=== PATIENT | male | born 1945 | race Caucasian/White ===

== ENCOUNTER 2022-05-02 10:37 | Emergency (ER) | payer MEDICARE, SELFPAY ==
[2022-05-02 10:45] VITALS: BP 142/81; PULSE 81; RESP 16; TEMP 36.4; O2SAT 94; BMI 30.7
--- NOTE | 2022-05-02 10:49 | ED_ITS ---
HPI - Dental/Oral General: Chief complaint: Dental/Oral Stated complaint: dental pain Time Seen by Provider: 05/02/22 10:44 Source: patient Mode of arrival: ambulatory Limitations: no limitations History of Present Illness: Patient is a nice 77-year-old male who presents to ED today with a complaint of right lower dental pain. Patient states last week he was eating breakfast and bit down on a slice of hartman and states his right lower molar cracked/broke and is now loose. He has contacted his primary dental office in [place] who stated they do not have any available appointments until June. He has contacted to other dental clinics here in [facility] and states one of them is able to see him in 2 weeks. Patient is not having any facial swelling. MD Complaint: tooth pain and tooth injury Teeth map: 1. Onset (ago): day(s) Duration: constant Relieving factors: nothing Exacerbating factors: chewing Context: trauma (mechanism) Associated symptoms: Reports no associated symptoms; Denies fever(s) or odynophagia Treatment prior to arrival: oral analgesic Review of Systems Const: Denies: fever(s), chills, body aches, fatigue or malaise ENMT: Reports: dental pain; Denies: throat pain, odynophagia, hoarseness, mouth pain, swelling of lips/tongue, oral sores or bleeding gums Card: Denies: chest pain Resp: Denies: dyspnea GI: Denies: nausea or vomiting Musc: Denies: neck pain Neuro: Denies: headache(s) Physical Exam Const: COMMON NORMALS: no acute distress, no limitations and alert HENMT: FACE & SINUS: normal facial exam MOUTH: Normal oral and palatal mucosa present, lip normal, tongue normal and other (floor of mouth is soft/non- raised) TEETH & GINGIVA: Yes dentures (upper) and Yes poor dentition (lower dentition with several widespread caries) TEETH & GINGIVA IMAGES: 1. severely decayed molar with fracture; tooth loose; no abscess formation at this time THROAT: posterior oropharynx normal, tonsils normal and uvula midline Neck/C-Spine: COMMON NORMALS: no lymphadenopathy GENERAL: Yes normal visual inspection, No anterior neck swelling and No submandibular swelling Neuro: SENSORIUM/ORIENTATION: Yes alert Course Vital Signs: Vital signs: Vital Signs Temperature 97.6 F 05/02/22 10:45 Pulse Rate 81 06/07/22 10:45 Respiratory Rate 16 05/02/22 10:45 Blood Pressure 142/81 05/02/22 10:45 Pulse Oximetry 94 05/02/22 10:45 MDM - Dental/Oral Medical Decision Making Ultimately patient needs this molar extracted. Recommend he keep his appointment for the dentist to get this done as soon as possible. Will place on antibiotics and give a small amount of pain medication he may use sparingly until this appointment. Recommend soft food diet, chewing on non-affected side, etc. Return to ED precautions given. Discharge Plan Discharge Patient Disposition: Home Clinical Impression: Toothache, Dental caries Condition: Stable Prescriptions: New penicillin V potassium 500 mg tablet 500 mg PO Q8H 7 Days Qty: 21 0RF tramadol 50 mg tablet 50 mg PO Q6H PRN (Reason: pain) Qty: 15 0RF Discharge Orders: Discharge ED (Routine); Ordered 05/02/22 Ordered By: Pamella Clements Referrals: Miguel Antunez MD [Hospitalist] - Patient Instructions: Dental Caries (Cavities), Acute Dental Trauma (ED), Toothache (ED) Coding Level of Care Code ED Sharepoint Architect for Mayelin Grey
== END 2022-05-02 11:10 | disposition home or self-care (01) ==
PROVIDERS: Emergency Provider Physician Assistant
DX: K08.89 Other specified disorders of teeth and supporting structures (principal); K02.9 Dental caries, unspecified
CPT/HCPCS: 99283

== ENCOUNTER → 2022-07-04 13:45 | Outpatient (BNVA) | payer MEDICARE, SELFPAY | PROVIDERS: Visit Provider Surgery | DX: D17.1 Benign lipomatous neoplasm of skin and subcutaneous tissue of trunk (principal); R22.2 Localized swelling, mass and lump, trunk | CPT/HCPCS: 99203 ==

== ENCOUNTER 2022-07-17 07:15 | Day surgery (SDC) | payer MEDICARE, SELFPAY ==
[2022-07-17] VITALS (7 sets, daily range): BP systolic 93–150; BP diastolic 46–84; PULSE 72–79; RESP 17–20; TEMP 36.1–36.7; O2SAT 92–98
--- NOTE | 2022-07-17 06:25 | ANES.PREANE2 ---
Pre-Anesthetic Assessment Height/Weight: Height 1.63 m Weight 75.296 kg Preop Diagnosis: back mass Operation Date: 07/17/22 08:15 Proposed Procedures p excision of upper back mass 93442,D17.1(Not Applicable) - Moreno Felix MD Familial anesthetic complications: None Was Beta Xochitl taken within 24 hours: N/A Was Clonidine taken within 24 hours: N/A Social No alcohol and No tobacco Exam alert, oriented x 3 and regular rate & rhythm diminished breath sounds b/l Airway Submandibular: within normal limits Cervical ROM: within normal limits Mallampati: Class I Comments: Comments: missing teeth History/ROS No significant complaints Pulmonary None reported Former smoker, denies COPD, asthma, ENEDINA CV/HEM None reported METS > 4 None reported Hepatic None reported GI None reported Metabolic None reported Musc/skel None reported Mass on back Neuropsych None reported Anesthetic Plan ASA status: 1 Anesthesia: Anesthesia Evaluation, General and MAC Other: We discussed risk and benefits of general anesthesia including PONV, sore throat (sometimes severe), corneal abrasion, positioning and peripheral nerve injuries, life threatening allergic reaction, post operative ICU admission requiring prolonged intubation, aspiration, stroke, heart attack, , and rare incidences of recall. I discussed with the patient risks, goals, and benefits of MAC and general anesthesia. We discussed spectrum of MAC anesthesia including conversion to general as well as possibility of recall of intraoperative stimuli including discomfort/pain. Patient consents to MAC or General pending further discussion with surgeon. Risk of > 500 ml blood loss (7ml/kg in children): No Medications/Allergies Home Medications Medication Instructions Recorded Confirmed Last Taken Type No Known Home Medications 07/14/22 07/14/22 Unknown History Allergies Allergy/AdvReac Type Severity Reaction Status Date / Time Sulfa (Sulfonamide Allergy ALGY-Hives Verified 07/17/22 07:32 Antibiotics) [facility] Anesthesia Social History Smoking and tobacco status: former smoker Data Anesthesia Cardiac Studies: No Data to Display
[2022-07-17] MEDS: acetaminophen 1,000 MG/100 ML PIGGYBACK 400 MG IV (07:51)
[2022-07-17] MEDS: sodium chloride 0.9% 1,000 ML 30 ML IV (07:51)
--- NOTE | 2022-07-17 08:07 | W.PM.OPSUD ---
Surgery/Procedure H&P Update DATE OF PROCEDURE: July 17, 2022 DATE H&P PERFORMED: 07/04/22 H&P UPDATE INFORMATION: I have reviewed H&P completed within last 30 days, I have examined patient prior to procedure and No changes to prior documentation PREOP DIAGNOSIS: Upper back mass PRIMARY INDICATION FOR PROCEDURE: The same PLANNED PROCEDURE: Operation Date: 07/17/22 08:15 Proposed Procedures p excision of upper back mass 01804,D17.1(Not Applicable) - Moreno Felix MD
[2022-07-17] MEDS: ceFAZolin 2,000 MG in sodium chloride 0.9% (plus) 50 ML 100 MG IV (08:25)
[2022-07-17] MEDS: lidocaine 2% INJ 20 mL INJECTION (08:41)
--- NOTE | 2022-07-17 09:07 | P.OP_ITS ---
Operative Report Date of procedure: July 17, 2022 Pre-op diagnosis: Preop Diagnosis back mass Post-op diagnosis: Upper back sebaceous cyst Procedure done: Excision of upper back sebaceous cyst Specimens removed/disposition: Sebaceous cyst 5 x 5 cm and skin ellipse including the punctum Surgeon: Moreno Felix MD Head Chopper: pilot plant research technician Zena Circulating nurse Rebeca Alfred Anesthesia: MAC (environmental economist Patty) Estimated blood loss (mL): 5 Procedure: After identifying the patient holding area, upper back mass was marked before the procedure by myself, patient was then taken to the operative suite, was placed in left lateral position and all pressure points were padded, IV antibiotics were given per protocol,IV propofol was infused by the anesthesia provider, prep and drape of the upper back region was done under the usual sterile technique. Time-out was done verifying the patient's name/date of /planned procedure and destination after the procedure, all were in agreement. After palpation of upper back mass infiltration of lidocaine 2%. Started with elliptical skin incision including the punctum of the sebaceous cyst. I was able to dissect using sharp dissection and the whole cyst was excised from the surrounding tissues, the specimen was then sent for permanent pathology. Copious and thorough irrigation of the cavity was done and hemostasis, followed by deep dermal closure by 2-0 Vicryl, then 2/0 nylon transverse mattress for skin closure, followed by triple antibiotic ointment and pressure dressing. Patient tolerated the procedure well, count of instruments, needles and sponges were completed at the end of the procedure. And then patient was taken to the recovery area in stable condition. I was present for the whole entire procedure
[2022-07-17] MEDS: neomycin-poly-bacitracin oint 28 gm 1 APPLIC TOPICAL (09:12)
--- NOTE | 2022-07-17 12:06 | ANE.PACU2 ---
Inpatient post-anesthesia follow up: Airway intact: Yes Vital signs: Temperature 98.1 F Pulse Rate 74 Respiratory Rate 17 Blood Pressure 113/72 Pulse Oximetry 95 Oxygen Delivery Me thod Room Air Oxygen Flow Rate 6 Fraction of Inspir ed Oxygen Hydration adequate: Yes Nausea and vomiting: No Pain level: 1 Mental status: Baseline
== END 2022-07-17 10:23 | disposition home or self-care (01) ==
PROVIDERS: Visit Provider Surgery
PROC: (CPT 11406; principal; 2022-07-17 08:05)
DX: L72.0 Epidermal cyst (principal); Z87.891 Personal history of nicotine dependence
CPT/HCPCS: 11406; 12032; 88304; J2704; J3010; J7030

== ENCOUNTER → 2022-07-24 08:16 | Outpatient (BNVA) | payer MEDICARE, SELFPAY | PROVIDERS: Visit Provider Surgery | DX: Z09 Encounter for follow-up examination after completed treatment for conditions other than malignant neoplasm (principal) | CPT/HCPCS: 99024 ==

== ENCOUNTER → 2022-08-02 11:07 | Outpatient (BNVA) | payer MEDICARE, SELFPAY | PROVIDERS: Visit Provider Surgery | DX: Z09 Encounter for follow-up examination after completed treatment for conditions other than malignant neoplasm (principal) | CPT/HCPCS: 99024 ==

== ENCOUNTER 2025-04-22 18:21 | Emergency (ER) | payer MEDICARE, SELFPAY ==
[2025-04-22 18:39] VITALS: BP 140/67; PULSE 89; RESP 16; TEMP 38; O2SAT 91
--- NOTE | 2025-04-22 19:13 | CTR_ITS ---
PROCEDURE INFORMATION: Exam: CT Abdomen And Pelvis Without Contrast Exam date and time: 04/22/2025 8:43 PM Age: 80 years old Clinical indication: Abdominal pain; Flank; Left; Additional info: Flank pain TECHNIQUE: Imaging protocol: Computed tomography of the abdomen and pelvis without contrast. Radiation optimization: All CT scans at this facility use at least one of these dose optimization techniques: automated exposure control; mA and/or kV adjustment per patient size (includes targeted exams where dose is matched to clinical indication); or iterative reconstruction. COMPARISON: CT kidney stone [id number] 08/14/2018 7:17 AM RADIATION DOSE METRICS: Total DLP (mGy-cm): 536.93 FINDINGS: Coronary arteries: Coronary arterial calcifications are demonstrated. Liver: Abnormal heterogeneous irregularity of hepatic capsular margin is noted, typical of cirrhotic liver disease. Liver demonstrates diffuse moderate to severe hypodensity. Stable medial left hepatic cyst. Gallbladder and biliary ducts: Cholelithiasis is demonstrated. The gallbladder appears otherwise unremarkable. No evidence for biliary dilatation. Pancreas: Unremarkable. Spleen: The spleen is enlarged. Spleen measurement: 14 cm greatest length. Adrenal glands: Normal. No mass. Kidneys and ureters: Bilateral nephrolithiasis is demonstrated. Bilateral renal calculi measure up to 5 mm. No visualized renal hydronephrosis. No visualized obstructing ureteral calculus. Indeterminate left renal incidental lesion identified. Measurement and location: Exophytic 11 mm density arises from the posterior lower left kidney measuring 30 Hounsfield units. Possible complex cyst or solid lesion. The visualized kidneys appear otherwise unremarkable. Stomach and bowel: Severely prominent fluid identified within the bowel, colon and rectum, suggesting severe diarrheal state. Findings compatible with severe infectious or inflammatory gastroenteritis, colitis with wall thickening. Wall thickening identified throughout the entire colon and distal rectum with adjacent edema. Appendix: The visualized appendix appears unremarkable. Intraperitoneal space: Moderate volume of intraperitoneal fluid identified in the bilateral abdomen and pelvis. Diffuse generalized moderate to severe abdominal pelvic mesenteric edema. No significant intraperitoneal well-defined fluid collection or air identified. Vasculature: Findings demonstrate evidence for portal venous hypertension. Findings include: Gastroesophageal varices, recanalized umbilical vein, portal venous collaterals within the abdomen or pelvis. Generalized anasarca and ascites. [id number] diffuse atherosclerotic arterial vascular wall calcifications are demonstrated. Lymph nodes: No enlarged lymph nodes. Urinary bladder: Unremarkable as visualized. Reproductive: Unremarkable as visualized. Bones/joints: Diffusely decreased bone density. Mild to moderate generalized bony degenerative changes. Bilateral L5 spondylolysis is demonstrated. Moderate to severe bony degenerative changes involving the lumbar sacral junction. Disc and osteophyte complexes with moderate to severe central canal and foraminal narrowing within the lumbar sacral junction. Minimal grade 1 anterior spondylolisthesis at L5-S1 level. Soft tissues: Laij-qm-sdbkavjt diffuse generalized anasarca. CT/CT kidney stone [id number] IMPRESSION: 1. Findings compatible with severe infectious or inflammatory gastroenteritis and colitis. See above details. Diffuse colonic wall thickening. 2. Liver cirrhosis. Recommend correlation with liver function tests. Moderate to severe hepatic steatosis. 3. Cholelithiasis. 4. Splenomegaly. Findings compatible with portal venous hypertension, as described above. 5. Moderate volume free intraperitoneal fluid within the abdomen pelvis. Generalized anasarca. 6. Bilateral nonobstructing nephrolithiasis. 7. Indeterminate left renal lesion, as described above. Recommend renal ultrasound to differentiate solid versus cystic lesion. 8. L5 spondylolysis with lumbosacral spondylolisthesis and advanced chronic bony degenerative changes, as described above. Consider MRI imaging. COMMENTS: Consistent with the [employer]'s Incidental Findings Committee white paper (J Am Bea Radiol 2018): Any incidental renal lesion less than 1 cm or classified as too small to characterize, or any incidental cystic renal lesion characterized as simple-appearing, is likely benign. No follow-up imaging is recommended for these lesions per consensus recommendations based on imaging criteria.
[2025-04-22 20:09] LABS: Basophils # 0.1 10^3/uL (0.0-0.1); Basophils % 0.6 %; Eosinophils % 0.4 %; Hematocrit 42.5 % (37-53); Lymphocytes # 1.2 10^3/uL (0.8-4.8); Lymphocytes % 11.9 %; Mean Corpuscular HGB Conc 31.5 g/dL (30-55); Mean Corpuscular Hemoglobin 26.6 pg (27-33); Mean Corpuscular Volume 84.3 fl (82-101); Mean Platelet Volume 9.9 fL (7.4-10.4); Monocytes # 0.8 10^3/uL (0.2-0.9); Monocytes % 7.7 %; Neutrophils # 7.83 10^3/uL (1.8-7.7); Neutrophils % 79.1 %; Nucleated Red Blood Cells % 0 %; Platelet Count 125 10^3/cmm (157-399); Red Blood Count 5.04 10^6/uL (3.85-5.65); Red Cell Distribution Width 15.9 % (12.1-15.1)
[2025-04-22 20:24] LABS: Alanine Aminotransferase 16 U/L (0-41); Albumin Level 3.4 g/dL (3.5-5.2); Alkaline Phosphatase 93 U/L (40-130); Anion Gap 18.1 (5-19); Aspartate Amino Transferase 32 U/L (0-40); Blood Urea Nitrogen 19 mg/dL (8-23); C Reactive Protein 27.5 mg/L (0.0-4.9); Calcium 8.4 mg/dL (8.5-10.5); Carbon Dioxide 25 mmol/L (22-29); Chloride 97 mmol/L (98-107); Creatinine Clr Calc Pharmacy 71.8186; Globulin 3.2 g/dL (1.3-4.6); Glucose 117 mg/dL (65-115); Osmolality Calculated 285 mOsm/kg (285-295); Potassium 4.1 mmol/L (3.5-5.1); Sodium 136 mmol/L (136-145); Total Bilirubin 1.2 mg/dL (0.15-1.2); Total Protein 6.6 g/dL (6.6-8.7)
[2025-04-22 20:26] LABS: Lactic Sepsis W/Reflex 2.1 mmol/L (0.5-2.2)
[2025-04-22 20:30] VITALS: BP 147/71; PULSE 82; RESP 16; O2SAT 92
[2025-04-22 20:33] VITALS: BP 105/91; PULSE 82; O2SAT 92
[2025-04-22 21:19] LABS: Bilirubin Urine 1+ (Negative); Blood Urine 1+ (Negative); Glucose Urine UA Negative (Normal); Ketones Urine 1+ (Negative); Leukocyte Esterase Urine Negative (Negative); Nitrate Urine Negative (Negative); Protein Urine Trace (Negative); Urine Appearance Clear (CLEAR); pH Urine 5.5 (5-7)
[2025-04-22 21:22] LABS: Bacteria Urine None Seen /hpf; Hyaline Casts Urine 2.87 /lpf; Squamous Epithelial Cell Urine 0-5 /hpf (0-5); WBC Urine 0-5 /hpf (0-5)
[2025-04-22 21:33] LABS: Specific Gravity, Urine 1.032 (1.005-1.030); Urine Color Orange (Yellow)
[2025-04-22 21:51] LABS: Reflex Lactate Order REFLEX LACTIC ORDERD
--- NOTE | 2025-04-22 22:01 | ED_ITS ---
HPI - Abdominal Pain 2 General: Chief Complaint: Abdominal Pain Stated Complaint: Pain in lower back N/D Time Seen by Provider: 04/22/25 19:30 Source: patient Mode of arrival: ambulatory Limitations: no limitations History of Present Illness: 80yo male presents with diarrhea that calderón s been ongoing for the past week. Patient reports that it did almost resolved a few days ago, but came back even worse. Patient denies any fever, chills, body aches, recent illness, recent use of antibiotics, cough, congestion, any other concerns at this time. Associated Symptoms: Reports diarrhea; Denies chills, fever(s), nausea and vomiting Related Data Previous Rx's ?Medication ?Instructions ?Recorded amoxicillin 875 mg-potassium 1 tab PO Q8H #15 tabs clavulanate 125 mg tablet Allergies Allergy/AdvReac Type Severity Reaction Status Date / Time Sulfa (Sulfonamide Allergy ALGY-Hives Verified 08/03/22 16:21 Antibiotics) Review of Systems 2 Const: Denies: fever(s), chills or body aches Card: Denies: chest pain Resp: Denies: dyspnea GI: Reports: diarrhea; Denies: nausea or vomiting : Denies: difficulty urinating PFSH ED 2 PFSH: Medical History Mass on back Social History Smoking and tobacco/nicotine status: former use of tobacco/nicotine Physical Exam 2 Const: COMMON NORMALS: no acute distress, patient oriented x3, healthy appearing and alert GENERAL APPEARANCE: cooperative O RIENTATION/CONSCIOUSNESS: Yes awake OTHER: Patient is standing at bedside in no acute distress. He is able to give history with no difficulty. He is interactive with exam appropriately. No family is at bedside HENMT: COMMON NORMALS: normocephalic and atraumatic HEAD & SCALP: n ormocephalic and atraumatic Neck/C-Spine: COMMON NORMALS: full ROM Chest: CHEST: Yes Symmetrical chest wall rise Resp: COMMON NORMALS: normal respiratory effort and clear to auscultation bilaterally EFFORT & INSPECTION: Yes able to speak in complete sentences A USCULTATION: clear to auscultation bilaterally Cardio: COMMON NORMALS: regular rate and regular rhythm RATE: regular rate RHYTHM: regular rhythm GI: COMMON NORMALS: Soft to palpation and non-tender PALPATION: Yes Soft to palpation Extremity: COMMON NORMALS: full ROM Neuro: COMMON NORMALS: patient oriented x3 SENSORIUM/ORIENTATION: Yes alert Psych: COMMON NORMALS: cooperative Course 2 Vital Signs: Vital signs: Vital Signs Temperature 100.4 F H 04/22/25 18:39 Pulse Rate 82 04/22/25 20:33 Respiratory Rate 16 04/22/25 20:30 Blood Pressure 105/91 04/22/25 20:33 Pulse Oximetry 92 04/22/25 20:33 Oxygen Delivery Me thod Room Air 04/22/25 20:33 MDM - Abdominal Pain Medical Decision Making 80yo male here with diarrhea that has been ongoing for the past week, it did improve a few days ago, but worsened again. Patient denies fever, chills, body aches, recent antibiotic usage, abdominal pain, any other concerns at this time. Patient is nontoxic in appearance. Vital signs are stable. No leukocytosis, white blood cell count noted to be 9.9. Hemoglobin is 13.4, no indication of anemia. No significant electrolyte, renal, or hepatic abnormalities noted. CRP is elevated at 27.5. UA with 1+ ketones, 1+ bilirubin, 1+ blood. Contrasted CTAP reveals findings compatible with severe infectious or inflammatory gastroenteritis and colitis with diffuse colonic wall thickening. Liver cirrhosis also noted with moderate to severe hepatic steatosis. Cholelithiasis. Splenomegaly. Generalized anasarca. Bilateral nonobstructing nephrolithiasis. Left renal lesion, recommend ultrasound for further evaluation. L5 spondylolysis with lumbosacral spondylolisthesis, consider MRI imaging. Discussed findings of severe infectious or inflammatory gastroenteritis and colitis with patient. Advised we would begin antibiotics. Information was provided for patient with other findings on CT for follow-up with primary care. Patient did receive Augmentin while in the emergency department and a prescription was sent to patient's pharmacy. Recommend taking the antibiotic to completion. Recommend follow-up with primary care, call in 2 to 3 days with an update of symptoms and to discuss recheck. Return precautions provided. Patient states understanding and has no further questions or concerns at this time. Differential Diagnosis Likely abdominal pain, calculus of kidney, diverticulitis and gastroenteritis Medical Records I reviewed the patient's medical records. Lab Data I reviewed the patient's lab results. 04/22/25 19:52 04/22/25 19:52 Labs/Radiology: Radiology Impressions Abdomen/Pelvis CT 04/22/25 19:13 IMPRESSION: 1. Findings compatible with severe infectious or inflammatory gastroenteritis and colitis. See above details. Diffuse colonic wall thickening. 2. Liver cirrhosis. Recommend correlation with liver function tests. Moderate to severe hepatic steatosis. 3. Cholelithiasis. 4. Splenomegaly. Findings compatible with portal venous hypertension, as described above. 5. Moderate volume free intraperitoneal fluid within the abdomen pelvis. Generalized anasarca. 6. Bilateral nonobstructing nephrolithiasis. 7. Indeterminate left renal lesion, as described above. Recommend renal ultrasound to differentiate solid versus cystic lesion. 8. L5 spondylolysis with lumbosacral spondylolisthesis and advanced chronic bony degenerative changes, as described above. Consider MRI imaging. COMMENTS: Consistent with the [employer]'s Incidental Findings Committee white paper (J Am Bea Radiol 2018): Any incidental renal lesion less than 1 cm or classified as too small to characterize, or any incidental cystic renal lesion characterized as simple-appearing, is likely benign. No follow-up imaging is recommended for these lesions per consensus recommendations based on imaging criteria. Laboratory Results WBC 9.90 10^3/uL (3.29-11.43) 04/22/25 19:52 RBC 5.04 10^6/uL (3.85-5.65) 04/22/25 19:52 Hgb 13.40 g/dL (11.27-16.99) 04/22/25 19:52 Hct 42.5 % (37-53) 04/22/25 19:52 MCV 84.3 fl (82-101) 04/22/25 19:52 MCH 26.6 pg (27-33) L 04/22/25 19:52 MCHC 31.5 g/dL (30-55) 04/22/25 19:52 RDW 15.9 % (12.1-15.1) H 04/22/25 19:52 Plt Count 125 10^3/cmm (157-399) L 04/22/25 19:52 MPV 9.9 fL (7.4-10.4) 04/22/25 19:52 Neut % (Auto) 79.1 % 04/22/25 19:52 Lymph % (Auto) 11.9 % 04/22/25 19:52 [place] % (Auto) 7.7 % 04/22/25 19:52 Eos % (Auto) 0.4 % 04/22/25 19:52 Baso % (Auto) 0.6 % 04/22/25 19:52 Neut # (Auto) 7.83 10^3/uL (1.8-7.7) H 04/22/25 19:52 Lymph # (Auto) 1.2 10^3/uL (0.8-4.8) 04/22/25 19:52 [place] # (Auto) 0.8 10^3/uL (0.2-0.9) 04/22/25 19:52 Eos # (Auto) 0.0 10^3/uL (0.0-0.8) 04/22/25 19:52 Baso # (Auto) 0.1 10^3/uL (0.0-0.1) 04/22/25 19:52 Nucleated RBC % (auto) 0 % 04/22/25 19:52 Nucleated RBCs # 0.0 /100WBC 04/22/25 19:52 Sodium 136 mmol/L (136-145) 04/22/25 19:52 Potassium 4.1 mmol/L (3.5-5.1) 04/22/25 19:52 Chloride 97 mmol/L (98-107) L 04/22/25 19:52 Carbon Dioxide 25 mmol/L (22-29) 04/22/25 19:52 Anion Gap 18.1 (5-19) 04/22/25 19:52 BUN 19 mg/dL (8-23) 04/22/25 19:52 Creatinine 0.7 mg/dL (0.7-1.2) 04/22/25 19:52 GFR Calculation Not Reportable 04/22/25 19:52 Glucose 117 mg/dL (65-115) H 04/22/25 19:52 Calculated Osmolality 285 mOsm/kg (285-295) 04/22/25 19:52 Lactic Acid 2.1 mmol/L (0.5-2.2) 04/22/25 19:52 Calcium 8.4 mg/dL (8.5-10.5) L 04/22/25 19:52 Total Bilirubin 1.2 mg/dL (0.15-1.2) 04/22/25 19:52 AST 32 U/L (0-40) 04/22/25 19:52 ALT 16 U/L (0-41) 04/22/25 19:52 Alkaline Phosphatase 93 U/L (40-130) 04/22/25 19:52 C-Reactive Protein 27.5 mg/L (0.0-4.9) H 04/22/25 19:52 Total Protein 6.6 g/dL (6.6-8.7) 04/22/25 19:52 Albumin 3.4 g/dL (3.5-5.2) L 04/22/25 19:52 Globulin 3.2 g/dL (1.3-4.6) 04/22/25 19:52 Urine Color [place] (Yellow) A 04/22/25 21:07 Urine Appearance Clear (CLEAR) 04/22/25 21:07 Urine pH 5.5 (5-7) 04/22/25 21:07 Ur Specific [place] 1.032 (1.005-1.030) H 04/22/25 21:07 Urine Protein Trace (Negative) A 04/22/25 21:07 Urine Glucose (UA) Negative (Normal) 04/22/25 21:07 Urine Ketones 1+ (Negative) H 04/22/25 21:07 Urine Blood 1+ (Negative) A 04/22/25 21:07 Urine Nitrate Negative (Negative) 04/22/25 21:07 Urine Bilirubin 1+ (Negative) H 04/22/25 21:07 Urine Urobilinogen 1.0 mg/dL (Negative) 04/22/25 21:07 Ur Leukocyte Esterase Negative (Negative) 04/22/25 21:07 Urine RBC 11-20 /hpf (0-2) H 04/22/25 21:07 Urine WBC 0-5 /hpf (0-5) 04/22/25 21:07 Ur Squamous Epith Cells 0-5 /hpf (0-5) 04/22/25 21:07 Amorphous Sediment Not Reportable 04/22/25 21:07 Urine Bacteria None seen /hpf (NONE) 04/22/25 21:07 Hyaline Casts 2.87 /lpf 04/22/25 21:07 All radiology interpretation(s) finalized by discharge Discharge Plan Discharge Patient Disposition: Home Clinical Impression: Colitis, Splenomegaly, Bilateral nephrolithiasis Cholelithiasis Qualifiers: Cholelithiasis location: gallbladder Cholecystitis presence: without cholecystitis Biliary obstruction: without biliary obstruction Qualified Code(s): K80.20 - Calculus of gallbladder without cholecystitis without obstruction Cirrhosis of liver Qualifiers: Hepatic cirrhosis type: unspecified hepatic cirrhosis Ascites presence: without ascites Qualified Code(s): K74.60 - Unspecified cirrhosis of liver Condition: Stable Prescriptions: New amoxicillin-pot clavulanate 875-125 mg tablet 1 tab PO Q8H Qty: 15 0RF Discharge Orders: Discharge ED (Routine); Ordered 04/22/25 Ordered By: Taz Auguste Discharge Diet: Advance as tolerated Discharge Activity: Increase activity as tolerated Patient Instructions: Colitis (ED) Activity Restrictions/Additional Instructions: The CT scan does show colitis. We have sent antibiotics to your pharmacy to begin treatment of the colitis. Please take these antibiotics to completion Incidental findings of the CT scan do include liver cirrhosis, anasarca, gallstones, enlarged spleen, kidney stones in both kidneys, and a left kidney lesion. Please follow-up with primary care for further evaluation of these abnormalities Follow-up with primary care, call in 2 to 3 days with an update of symptoms and to discuss a recheck Return to the emergency department if any rapid worsening symptoms, onset of fever associated with worsening, and as needed Print Language: Slovak Coding Level of Care Code ED Christian Science Practitioner for Mayelin Grey
[2025-04-22] MEDS: acetaminophen 325 mg Tablet 650 MG PO (22:27)
[2025-04-22] MEDS: amoxicillin-clav 875-125 mg Tablet 1 TAB PO (22:27)
[2025-04-22 22:34] VITALS: BP 131/58; PULSE 87; RESP 16; O2SAT 93
== END 2025-04-22 22:35 | disposition home or self-care (01) ==
PROVIDERS: Emergency Medicine; Emergency Provider Nurse Practitioner
DX: K52.9 Noninfective gastroenteritis and colitis, unspecified (principal); N20.0 Calculus of kidney; R16.1 Splenomegaly, not elsewhere classified; K80.20 Calculus of gallbladder without cholecystitis without obstruction; K74.60 Unspecified cirrhosis of liver
CPT/HCPCS: 74176; 80053; 81001; 83605; 85025; 86140; 87040; 99284; J9999

== ENCOUNTER 2025-06-25 15:20 | Emergency (ER) | payer MEDICARE, SELFPAY ==
[2025-06-25 15:23] VITALS: BP 166/74; PULSE 82; RESP 19; TEMP 36.7; O2SAT 94; BMI 26.7
--- NOTE | 2025-06-25 18:07 | CTR_ITS ---
PROCEDURE INFORMATION: Exam: CT Abdomen And Pelvis Without Contrast Exam date and time: 06/25/2025 6:25 PM Age: 80 years old Clinical indication: Abdominal pain; Localized; Right; Additional info: Flank pain TECHNIQUE: Imaging protocol: Computed tomography of the abdomen and pelvis without contrast. Radiation optimization: All CT scans at this facility use at least one of these dose optimization techniques: automated exposure control; mA and/or kV adjustment per patient size (includes targeted exams where dose is matched to clinical indication); or iterative reconstruction. COMPARISON: CT kidney stone [id number] 04/22/2025 8:43 PM RADIATION DOSE METRICS: Total DLP (mGy-cm): 532.57 FINDINGS: Liver: Cirrhotic liver morphology. Similar cysts in the medial segment left hepatic lobe. Diffuse hepatic steatosis. Gallbladder and biliary ducts: Cholelithiasis without CT evidence of acute cholecystitis. Pancreas: Fatty atrophy of the pancreas. No ductal dilatation. Spleen: The spleen measures 15.3 cm craniocaudal. Adrenal glands: Normal. No mass. Kidneys and ureters: Redemonstrated bilateral nephrolithiasis with calculi measuring up to 5 mm. No hydronephrosis. Stable appearance of the kidneys, including an exophytic lesion arising from the posterior left kidney. 2 mm calculus of the level of the left ureterovesicular junction with mild upstream hydroureter. Stomach and bowel: Mild sigmoid diverticulosis without diverticulitis. No evidence of bowel obstruction. Appendix: No evidence of appendicitis. Intraperitoneal space: Moderate volume ascites. Mild mesenteric edema. Vasculature: Moderate atherosclerotic aortoiliac calcifications. No abdominal aortic aneurysm. Redemonstrated paraesophageal and upper abdominal varices and a recanalized paraumbilical vein. Lymph nodes: Unremarkable. No enlarged lymph nodes. Urinary bladder: Circumferential bladder wall thickening. Reproductive: Prostatomegaly. 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 Degenerative changes of the spine. Diffuse osseous demineralization. Soft tissues: Unremarkable. CT/CT kidney stone [id number] IMPRESSION: 1. 2 mm calculus at the level of the left ureterovesicular junction with mild upstream hydroureter. 2. Cirrhotic liver morphology with imaging features of portal hypertension including moderate volume ascites, splenomegaly, paraesophageal and upper abdominal varices, and a recanalized paraumbilical vein. 3. Similar nonobstructing bilateral nephrolithiasis. 4. Prostatomegaly. Correlate with PSA levels. 5. Indeterminate left renal lesion again seen. Recommend nonemergent renal ultrasound. 6. Remainder stable.
--- NOTE | 2025-06-25 18:22 | ED_ITS ---
HPI - Back Pain/Injury 2 General: Chief Complaint: Back Pain/Injury Stated Complaint: Lower ABD Pain Time Seen by Provider: 06/25/25 18:07 History of Present Illness: 80-year-old man who presents emergency r oom with flank pain. He had some nausea but no vomiting. No fevers. Says the pain was very severe and then suddenly passed. He says he is being treated for a urinary tract infection. He is currently pain-free Related Data Previous Rx's ?Medication ?Instructions ?Recorded amoxicillin 875 mg-potassium 1 tab PO Q8H #15 tabs clavulanate 125 mg tablet cephalexin 500 mg tablet 500 mg PO TID 7 days #21 tab s 06/25/25 hydrocodone 5 mg-acetaminophen 325 1 tab PO Q6H PRN pa in #20 tabs 06/25/25 mg tablet ondansetron 8 mg disintegrating 8 mg PO Q6H #14 tabs 0 06/25/25 tablet polyethylene glycol 3350 17 17 g PO DAILY #510 grams 0 06/25/25 gram/dose oral powder (Miralax) tamsulosin 0.4 mg capsule (Flomax) 0.4 mg PO DAILY #30 caps 06/25/25 Allergies Allergy/AdvReac Type Severity Reaction Status Date / Time Sulfa (Sulfonamide Allergy ALGY-Hives Verified 08/03/22 16:21 Antibiotics) Review of Systems 2 Narrative: Constitutional symptoms: Negative except as documented in HPI. Skin symptoms: Negative except as documented in HPI. Eye symptoms: Negative except as documented in HPI. ENMT symptoms: Negative except as documented in HPI. Respiratory symptoms: Negative except as documented in HPI. Cardiovascular symptoms: Negative except as documented in HPI. Gastrointestinal symptoms: Negative except as documented in HPI. Genitourinary symptoms: Negative except as documented in HPI. Musculoskeletal symptoms: Negative except as documented in HPI. Neurologic symptoms: Negative except as documented in HPI. Psychiatric symptoms: Negative except as documented in HPI. Endocrine symptoms: Negative except as documented in HPI. PFSH ED 2 PFSH: Medical History (Updated 06/25/25 @ 19:22 by Breana Conner MD) Mass on back Social History Smoking and tobacco/nicotine status: former use of tobacco/nicotine Physical Exam 2 Narrative: EXAM NARRATIVE: General: Alert, no acute distress. Skin: Warm, dry. Head: Normocephalic, atraumatic. Neck: Supple, trachea midline. Eye: Extraocular movements are intact. Ears, nose, mouth and throat: mucosa moist. Cardiovascular: Regular, Normal peripheral perfusion. Respiratory: Lungs are clear to auscultation, respirations are non-labored, breath sounds are equal, Symmetrical chest wall expansion. Gastrointestinal: Soft, Nontender, Non distended Musculoskeletal: Normal ROM, no deformity. Neurological: Alert and oriented, No focal neurological deficit observed. Psychiatric: Cooperative, appropriate mood & affect. Course 2 Vital Signs: Vital signs: Vital Signs Temperature 98.0 F 06/25/25 15:23 Pulse Rate 92 06/25/25 19:17 Respiratory Rate 18 06/25/25 19:17 Blood Pressure 167/75 06/25/25 19:17 Pulse Oximetry 93 06/25/25 19:17 Oxygen Delivery Me thod Room Air 06/25/25 19:17 MDM - Back Pain/Injury Medical Decision Making Medical decision making: Differential diagnosis including but not limited to and based on the above HPI, review of systems and physical exam: In this patient with flank pain would have concern for: Ureterolithiasis. Urinary tract infection. Appendicitis. Cholecystitis. Musculoskeletal / back pain. Pyelonephritis. Orders placed to evaluate differential diagnosis based on the above differential, HPI and physical exam Lab Review: Laboratory results were reviewed and interpreted by myself the emergency room physician. No leukocytosis. No anemia. No renal failure. Urine does show some hematuria but no signs of infection. CT of the abdomen pelvis without contrast shows a 2 mm calculus at the UVJ. Some mild upstream hydroureter. Also stigmata of cirrhosis. Patient has known cirrhosis. He follows with a doctor in [place] for this. This was reviewed and interpreted by myself the emergency room physician. I also reviewed the radiology report. I reviewed the patient's medical record. Reexamination: Patient remained stable. No increased work of breathing. No altered mental status. No focal motor deficits. Assessment and plan: Ureterolithiasis ?Patient has been asymptomatic since he arrived here. - Discharged home - Discussed plan with patient. Answered any questions. - Evaluation and treatment of this problem were appropriate in the emergency setting. Labs 06/25/25 18:55 06/25/25 18:55 Radiology Impressions Abdomen/Pelvis CT 06/25/25 18:07 IMPRESSION: 1. 2 mm calculus at the level of the left ureterovesicular junction with mild upstream hydroureter. 2. Cirrhotic liver morphology with imaging features of portal hypertension including moderate volume ascites, splenomegaly, paraesophageal and upper abdominal varices, and a recanalized paraumbilical vein. 3. Similar nonobstructing bilateral nephrolithiasis. 4. Prostatomegaly. Correlate with PSA levels. 5. Indeterminate left renal lesion again seen. Recommend nonemergent renal ultrasound. 6. Remainder stable. Laboratory Results WBC 5.05 10^3/uL (3.29-11.43) 06/25/25 18:55 RBC 4.48 10^6/uL (3.85-5.65) 06/25/25 18:55 Hgb 12.10 g/dL (11.27-16.99) 06/25/25 18:55 Hct 38.4 % (37-53) 06/25/25 18:55 MCV 85.7 fl (82-101) 06/25/25 18:55 MCH 27.0 pg (27-33) 06/25/25 18:55 MCHC 31.5 g/dL (30-55) 06/25/25 18:55 RDW 16.1 % (12.1-15.1) H 06/25/25 18:55 Plt Count 102 10^3/cmm (157-399) L 06/25/25 18:55 MPV 10.9 fL (7.4-10.4) H 06/25/25 18:55 Neut % (Auto) 81.4 % 06/25/25 18:55 Lymph % (Auto) 11.5 % 06/25/25 18:55 [place] % (Auto) 5.1 % 06/25/25 18:55 Eos % (Auto) 1.2 % 06/25/25 18:55 Baso % (Auto) 0.4 % 06/25/25 18:55 Neut # (Auto) 4.11 10^3/uL (1.8-7.7) 06/25/25 18:55 Lymph # (Auto) 0.6 10^3/uL (0.8-4.8) L 06/25/25 18:55 Stoddard # (Auto) 0.3 10^3/uL (0.2-0.9) 06/25/25 18:55 Eos # (Auto) 0.1 10^3/uL (0.0-0.8) 06/25/25 18:55 Baso # (Auto) 0.0 10^3/uL (0.0-0.1) 06/25/25 18:55 Nucleated RBC % (auto) 0 % 06/25/25 18:55 Nucleated RBCs # 0.0 /100WBC 06/25/25 18:55 Sodium 136 mmol/L (136-145) 06/25/25 18:55 Potassium 3.9 mmol/L (3.5-5.1) 06/25/25 18:55 Chloride 97 mmol/L (98-107) L 06/25/25 18:55 Carbon Dioxide 28 mmol/L (22-29) 06/25/25 18:55 Anion Gap 14.9 (5-19) 06/25/25 18:55 BUN 16 mg/dL (8-23) 06/25/25 18:55 Creatinine 0.8 mg/dL (0.7-1.2) 06/25/25 18:55 GFR Calculation Not Reportable 06/25/25 18:55 Glucose 132 mg/dL (65-115) H 06/25/25 18:55 Calculated Osmolality 285 mOsm/kg (285-295) 06/25/25 18:55 Lactic Acid 2.5 mmol/L (0.5-2.2) H 06/25/25 18:55 Calcium 8.8 mg/dL (8.5-10.5) 06/25/25 18:55 Total Bilirubin 1.3 mg/dL (0.15-1.2) H 06/25/25 18:55 AST 47 U/L (0-40) H 06/25/25 18:55 ALT 27 U/L (0-41) 06/25/25 18:55 Alkaline Phosphatase 112 U/L (40-130) 06/25/25 18:55 Total Protein 6.7 g/dL (6.6-8.7) 06/25/25 18:55 Albumin 3.4 g/dL (3.5-5.2) L 06/25/25 18:55 Globulin 3.3 g/dL (1.3-4.6) 06/25/25 18:55 Urine Color Yellow (Yellow) 06/25/25 19:15 Urine Appearance Clear (CLEAR) 06/25/25 19:15 Urine pH 5.5 (5-7) 06/25/25 19:15 Ur Specific [place] 1.011 (1.005-1.030) 06/25/25 19:15 Urine Protein Negative (Negative) 06/25/25 19:15 Urine Glucose (UA) Negative (Normal) 06/25/25 19:15 Urine Ketones Negative (Negative) 06/25/25 19:15 Urine Blood 3+ (Negative) A 06/25/25 19:15 Urine Nitrate Negative (Negative) 06/25/25 19:15 Urine Bilirubin Negative (Negative) 06/25/25 19:15 Urine Urobilinogen 1.0 mg/dL (Negative) 06/25/25 19:15 Ur Leukocyte Esterase Negative (Negative) 06/25/25 19:15 Urine RBC 3-5 /hpf (0-2) 06/25/25 19:15 Urine WBC 0-5 /hpf (0-5) 06/25/25 19:15 Ur Squamous Epith Cells 0-5 /hpf (0-5) 06/25/25 19:15 Amorphous Sediment Not Reportable 06/25/25 19:15 Urine Bacteria None seen /hpf (NONE) 06/25/25 19:15 Hyaline Casts 2.46 /lpf 06/25/25 19:15 All radiology interpretation(s) finalized by discharge Discharge Plan Discharge Patient Disposition: Home Clinical Impression: Ureterolithiasis Condition: Stable Prescriptions: New hydrocodone-acetaminophen 5-325 mg tablet 1 tab PO Q6H PRN (Reason: pain) Qty: 20 0RF ondansetron 8 mg tablet,disintegrating 8 mg PO Q6H Qty: 14 0RF Rx Instructions: Take 1/2-1 tab every 6 hours as needed for nausea and vomiting tamsulosin [Flomax] 0.4 mg capsule 0.4 mg PO DAILY Qty: 30 0RF cephalexin 500 mg tablet 500 mg PO TID 7 Days Qty: 21 0RF polyethylene glycol 3350 [Miralax] 17 gram/dose powder 17 g PO DAILY Qty: 510 0RF Rx Instructions: Take 1 scoop daily while taking pain medications. No Action amoxicillin-pot clavulanate 875-125 mg tablet 1 tab PO Q8H Qty: 15 0RF Discharge Orders: Discharge ED (Routine); Ordered 06/25/25 Ordered By: Breana Conner Referrals: [email or web address] [Referring, Urology] Referral Note: Please call for a follow-up appointment with urology concerning your kidney stones. Discharge Diet: Usual diet Discharge Activity: Increase activity as tolerated Patient Instructions: Kidney Stones (ED), Opioid Safety, Pain Management, Patient Portal & Angel[place] Instructions Activity Restrictions/Additional Instructions: Call for appointment with urology. If fever (temp >100.4) develops return to the emergency room immediately, as this is an emergency. Take nausea medication prior to taking pain medications. Thank you for choosing [facility] for your healthcare needs today. You have been screened and evaluated and felt safe for discharge. Health conditions do change or evolve sometimes and as such it is important that you follow up with your Primary Doctor to be re checked, 3-5 days is a general good time frame for follow up. You are always welcome to return to the ED for re assessment if your symptoms are worsening or you have new concerns Print Language: Paraguayan Coding Level of Care Code ED Electronic Publishing Specialist for Mayelin Grey
[2025-06-25 19:11] LABS: Hematocrit 38.4 % (37-53); Hemoglobin 12.10 g/dL (11.27-16.99); Mean Corpuscular HGB Conc 31.5 g/dL (30-55); Mean Corpuscular Hemoglobin 27.0 pg (27-33); Mean Corpuscular Volume 85.7 fl (82-101); Nucleated Red Blood Cells % 0 %; Platelet Count 102 10^3/cmm (157-399); Red Blood Count 4.48 10^6/uL (3.85-5.65); White Blood Count 5.05 10^3/uL (3.29-11.43)
[2025-06-25 19:17] VITALS: BP 167/75; PULSE 92; RESP 18; O2SAT 93
[2025-06-25 19:26] LABS: Glucose Urine UA Negative (Normal); Nitrate Urine Negative (Negative); Specific Gravity, Urine 1.011 (1.005-1.030)
[2025-06-25 19:26] LABS: Alanine Aminotransferase 27 U/L (0-41); Albumin Level 3.4 g/dL (3.5-5.2); Alkaline Phosphatase 112 U/L (40-130); Anion Gap 14.9 (5-19); Aspartate Amino Transferase 47 U/L (0-40); Blood Urea Nitrogen 16 mg/dL (8-23); Calcium 8.8 mg/dL (8.5-10.5); Carbon Dioxide 28 mmol/L (22-29); Chloride 97 mmol/L (98-107); Creatinine Clr Calc Pharmacy 67.5914; Globulin 3.3 g/dL (1.3-4.6); Glucose 132 mg/dL (65-115); Osmolality Calculated 285 mOsm/kg (285-295); Potassium 3.9 mmol/L (3.5-5.1); Sodium 136 mmol/L (136-145); Total Protein 6.7 g/dL (6.6-8.7)
[2025-06-25 19:27] LABS: Lactic Sepsis W/Reflex 2.5 mmol/L (0.5-2.2)
[2025-06-25 20:22] VITALS: BP 146/70; PULSE 78; RESP 18; O2SAT 95
[2025-06-25 20:55] LABS: Reflex Lactate Order REFLEX LACTIC ORDERD
--- OUTSIDE RECORDS SUMMARY | 2025-06-26 06:55 | XMS_ITS | Clinical Summary ---
Author Organization [facility] Administrative Offices Address [address] [place] [id number] Care Team Providers Care City Library Director Name Role Phone Jamila Antunez MD Primary Care Provider [phone]- [phone] Allergies Active Allergy Reactions Criticality Noted Date Comments Sulfa (Sulfonamide Antibiotics) Other (See Comments) 06/22/2022 Sweating Medications No known medications Active Problems No known active problems Family History Medical History Relation Name Comments Cancer Father Stroke Mother Relation Name Status Comments Father Mother Social History Tobacco Use Types Packs/Day Years Used Date Smoking Tobacco: Former Cigarettes Smokeless Tobacco: Never Tobacco Cessation:Counseling Given: No Alcohol Use Standard Drinks/Week Comments Not Currently 0 (1 standard drink = 0.6 oz pur e alcohol) Sex and Gender Information Value Date Recorded Sex Assigned at Not on file 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 Gender Identity Not on file Sexual Orientation Not on file Last Filed Vital Signs Vital Sign Reading Time Taken Comments Blood Pressure 132/70 07/13/2022 1:42 PM CDT Pulse 87 07/13/2022 1:42 PM CDT Temperature 36.3 C (97.4 F) 07/13/2022 1:42 PM CDT Respiratory Rate 16 07/13/2022 1:42 PM CDT Oxygen Saturation 95% 07/13/2022 1:42 PM CDT Inhaled Oxygen Concentration - - Weight 75.4 kg (166 lb 4 oz) 07/13/2022 1:42 PM CDT Height 161.3 cm (5' 3.5 ) 07/13/2022 1:42 PM CDT Body Mass Index 28.99 07/13/2022 1:42 PM CDT Plan of Treatment Health Maintenance Due Date Last Done Comments DTAP/TDAP/TD VACCINES (1 - Tdap) 1964 PNEUMOCOCCAL VACCINE 50+ YEARS (1 of 1 - PCV) 02/11/19 96 ZOSTER VACCINE (1 of 2) 02/12/1996 RSV VACCINE (60+ or ) (1 - 1-dose 75+ series) 2021 INFLUENZA VACCINE (#1) 2025 Insurance [employer] [facility] Care Teams City Library Director Relationship Specialty Start Date End Date Jamila Antunez MD [address] [place] [id number] PCP - General Family Practice 06/22/22
== END 2025-06-25 20:24 | disposition home or self-care (01) ==
PROVIDERS: Emergency Provider Emergency Medicine
DX: N20.1 Calculus of ureter (principal); Z87.891 Personal history of nicotine dependence
CPT/HCPCS: 36415; 74176; 80053; 81001; 83605; 85025; 87040; 99284